=== PATIENT | male | born 1940 | race Asian ===

== ENCOUNTER 2019-03-16 15:41 | Emergency (ER) | payer OTHER, MEDICAID ==
[~2019-03-16] VITALS: Ht 175.3 cm; Wt 80.7 kg
[2019-03-16 15:47] VITALS: Ht 175.3 cm; Wt 80.7 kg
[2019-03-16 17:04] LABS: BASOPHIL % 0.4 % (0-2); PLATELET COUNT 158 x10^3mcL (130-400); RED CELL DISTRIBUTION WIDTH 12.8 % (11.5-14.5)
[2019-03-16 17:07] LABS: CALCIUM 8.6 mg/dL (8.5-10.1); CARBON DIOXIDE 28.7 mmol/L (21-32); CHLORIDE SERUM 104 mmol/L (98-107); CREATININE SERUM 0.9 mg/dL (0.7-1.3); GLUCOSE SERUM 88 mg/dL (74-106); SODIUM SERUM 140 mmol/L (136-145)
[2019-03-16 17:11] LABS: ALBUMIN 3.7 g/dL (3.4-5.0); ALKALINE PHOSPHATASE 84 U/L (46-116); ALT/SGPT 31 U/L (16-63); AST/SGOT 23 U/L (15-37); TOTAL PROTEIN, SERUM 6.7 g/dL (6.4-8.2)
[2019-03-16] MEDS ORDERED: DILTIAZEM HCL180 MG PO (17:16)
[2019-03-16] MEDS ORDERED: SIMVASTATIN20 M1 PO (17:17)
[2019-03-16] MEDS ORDERED: ISOSORBIDE (17:17)
[2019-03-16] MEDS ORDERED: XARELTO10 M1 PO (17:17)
[2019-03-16] MEDS ORDERED: RESTORIL15 MG PO (17:18)
[2019-03-16] MEDS ORDERED: FLO4 PO (17:20)
[2019-03-16 19:12] VITALS: BP 131/67
== END 2019-03-16 19:52 | disposition left against medical advice (07) ==
LOC: ED 15:41
PROVIDERS: Emergency Medicine
DX: I63.9 Cerebral infarction, unspecified (principal); I10 Essential (primary) hypertension; Z86.73 Personal history of transient ischemic attack (TIA), and cerebral infarction without residual deficits; Z95.1 Presence of aortocoronary bypass graft; Z95.0 Presence of cardiac pacemaker; Z98.890 Other specified postprocedural states
CPT/HCPCS: 36415; Q0092; Q9967